=== PATIENT | male | born 1955 | race Caucasian/White ===

== ENCOUNTER 2016-05-25 10:51 | Inpatient (IN) | payer BC ==
--- NOTE | ~2016-05-25 | HP ---
History And Physical [id number] [place]. [address] NAME: ZACARIAS VELAZQUEZ : 57 STATUS : ADM Nestor PAT#: [id number] AGE: 60 ADM/REG DATE : 05/25/16 MR#: [id number] REPORT SERV DATE: 05/26/16 DICTATED BY: ANTONY CARRINGTON DATE: 05/25/16 REPORT STATUS : Draft TRANSCRIBED BY: MODL DATE: 05/25/16 DATE OF ADMISSION: 05/25/2016 CHIEF COMPLAINT: Abdominal pain, bright red blood per rectum. HISTORY OF PRESENT ILLNESS: A 60-year-old man with a past medical history of recent disk herniation. Prior to admission, the patient has been on a prednisone taper and oral pain medications. Reports not to have been eating well for the last week. Started to have abdominal pain several days prior to admission. A day prior to admission, tried to have several bowel movements, but was unable to. The small amount that he was having, produced some bright red blood per rectum. The patient denies chest pain, shortness of breath, palpitations, diaphoresis, hemoptysis, melena, orthopnea, lower extremity swelling, slurred speech, localized weakness, headache, dizziness, or blurry vision. Reports some chills. The patient was evaluated in the ED, found to have evidence of colitis on CT. The patient was started on IV Levaquin and Flagyl. Hospitalist called for further inpatient management. ALLERGIES: PENICILLIN. HOME MEDICATIONS: Include: 1. Artificial tears p.r.n. 2. [place] 5/325 one tab p.o. b.i.d. p.r.n. 3. Lidocaine 5% topical patch daily. 4. Robaxin 750 mg tabs two tabs p.o. t.i.d. p.r.n. 5. Prednisone taper. 6. Multivitamin. 7. Zofran p.o. daily p.r.n. PAST MEDICAL HISTORY: Significant for disk herniations. SOCIAL HISTORY: Denies any alcohol, tobacco, or illicit drug use. FAMILY HISTORY: Positive for hypertension. REVIEW OF SYSTEMS: Twelve-point system reviewed, otherwise negative per HPI. PHYSICAL EXAMINATION: VITAL SIGNS: Temperature 98.3, heart rate 95, blood pressure 172/93, respiratory rate 20, O2 saturation 97 on room air. GENERAL: In mild distress secondary to back pain. HEENT: EOMI, PERRLA, nonicteric sclerae, nonerythematous pharynx. NECK: Supple. No JVD. No lymphadenopathy. RESPIRATORY: Clear to auscultation bilaterally. No wheezes, rhonchi, or crackles. CARDIOVASCULAR: Regular rate and rhythm. No murmurs, rubs, or gallops. ABDOMEN: Bowel sounds positive. Soft, nontender, nondistended. No rebound or guarding. No peritoneal signs. History And Physical [address] [address] NAME: ZACARIAS VELAZQUEZ : 57 STATUS : ADM Nestor PAT#: [id number] AGE: 60 ADM/REG DATE : 05/25/16 MR#: [id number] REPORT SERV DATE: 05/26/16 DICTATED BY: ANTONY CARRINGTON DATE: 05/25/16 REPORT STATUS : Draft TRANSCRIBED BY: MODJayna DATE: 05/25/16 EXTREMITIES: No edema or cyanosis. NEUROLOGICAL: Nonfocal. LABORATORY DATA: WBC of 19, hemoglobin 19, hematocrit 52.2, platelets 305. Sodium 134, potassium 3.9, chloride 101, bicarb 20, BUN 22, creatinine 0.95, glucose 149, lipase 106, lactate 1.6, procalcitonin 0.26. IMAGING: CT of the abdomen and pelvis, impression, edematous descending colon with adjacent mesenteric stranding suggestive of colitis. Infectious versus ischemic. ASSESSMENT: 1. Colitis, infectious versus ischemic. 2. Recent disk herniation. PLAN: The patient will be admitted to telemetry. Consult GI for further recommendations. IV fluids. Levaquin and Flagyl IV. Clear liquid diet. Antiemetics. Appropriate pain control. Repeat lactic acid. Labs in the morning. Further evaluation and management per clinical course. DVT prophylaxis, SCDs. GI prophylaxis, Pepcid. CODE STATUS: Full code. Total time for history and physical, 45 minutes. JUSTIN/ALONZO Yumi Diane MD / [id number] CC: Yumi Diane MD
--- NOTE | ~2016-05-25 | CN ---
Consultation Report [facility] [address] [place]. [address] NAME: ZACARIAS CANNON : 57 STATUS : ADM Nestor PAT#: [id number] AGE: 60 ADM/REG DATE : 05/25/16 MR#: [id number] REPORT SERV DATE: 05/26/16 DICTATED BY: CHUCK HAM DATE: 05/26/16 REPORT STATUS : Draft TRANSCRIBED BY: MODL DATE: 05/26/16 GI CONSULTATION DATE OF CONSULTATION: 05/26/2016 REASON FOR CONSULTATION: Evaluation and management of lower GI bleeding and abdominal pain. HISTORY OF PRESENT ILLNESS: Mr. Cannon is a very pleasant 60-year-old male patient, who is known to Dr. Caroline Domingo on the outpatient basis, who presented to [facility] on 05/25 with a chief complaint of abdominal pain and bright red blood per rectum. He gives a history of a recent herniated disk one week ago, being seen in the outpatient setting, put on a prednisone taper course, as well as oral pain medications. He states that he has had no appetite since being on these medications, as well as fairly significant constipation on Thursday. He states that he felt the urge to have a bowel movement. He had a lot of lower abdominal pain and discomfort. He sat on the toilet for quite some time. He had hot sweating episodes as well as chilling. He began to have bowel movements, however, was passing bright red blood and then eventually was only passing bright red blood. He denies any fever, chills, chest pain, or shortness of breath. He still complains of abdominal pain to me. He came into the emergency room, having a CT scan of the abdomen and pelvis, which showed edematous descending colon with adjacent mesenteric stranding, suggesting colitis, infectious versus ischemic in nature. I have discussed with the patient as well as the family, who is present at the bedside, that we will plan on proceeding with colonoscopy tomorrow. He has had no further bowel movement, but has passed some blood. No stool studies have been sent. I did discuss the risks, benefits, alternatives, and complications with him to include, but not limited to risk of bleeding, perforation, infection, reaction to medications as well as cardiac and pulmonary side effects. They are agreeable to proceed. PAST MEDICAL HISTORY: Positive for colon polyps and disk herniation. SOCIAL HISTORY: He is . He denies alcohol, tobacco, or illicits. FAMILY HISTORY: Noncontributory from a GI standpoint. ALLERGIES: PENICILLIN. HOME MEDICATIONS: Artificial tears, [place], lidocaine, Robaxin, prednisone, multivitamin, and Zofran. REVIEW OF SYSTEMS: A 10-point review of systems has been obtained with pertinent positives being addressed in the history of present illness. PERTINENT LABORATORY DATA: Sodium is 139, potassium 3.8, BUN is 15, creatinine is 0.89. Consultation Report [id number] [facility] [place]. [address] NAME: ZACARIAS CANNON : 57 STATUS : ADM Nestor PAT#: [id number] AGE: 60 ADM/REG DATE : 05/25/16 MR#: [id number] REPORT SERV DATE: 05/26/16 DICTATED BY: CHUCK HAM DATE: 05/26/16 REPORT STATUS : Draft TRANSCRIBED BY: MODL DATE: 05/26/16 White count 16.5, hemoglobin 16.3, hematocrit 45.8, platelet count 268. PHYSICAL EXAMINATION: VITAL SIGNS: Temperature 99.3, pulse 98, respirations 22, and blood pressure 158/92. NEURO: Reveals an alert male, resting in bed with no focal deficits. GENERAL: Cooperative, in no apparent distress. He is awake. He is alert and oriented x3. HEAD, EARS, EYES, NOSE, AND THROAT: Anicteric. Pupils are equal, round, reactive to light and accommodation. Normocephalic and atraumatic. NECK: No JVD. No palpable nodes. LUNGS: Clear anteriorly with normal respiratory effort exhibited. Equal expansion. CARDIOVASCULAR SYSTEM: Regular rate and rhythm. ABDOMEN: Soft and tender to palpation diffusely, bloated by the patient's report. EXTREMITIES: No edema. Normal distal pulses. SKIN: Warm, dry, and intact. ASSESSMENT AND PLAN: 1. Acute descending colon colitis with lower GI bleeding, ischemic versus infectious in nature. 2. Recent disk herniation, pending surgical procedure. 3. Recent constipation secondary to opioid pain medications. PLAN: 1. Clear liquid diet. 2. Bowel prep. 3. Colonoscopy in the morning. 4. Stool studies. 5. Continue Levaquin and Flagyl. 6. Other recommendations to follow endoscopy. LEANNE/MODL LEONELA Beatty / [id number] CC: MD Robi Reed D.O.
--- NOTE | ~2016-05-25 | DS ---
Discharge Summary [facility] [address] [place]. [address] NAME: ZACARIAS VELAZQUEZ : 57 STATUS : DIS IN PAT#: [id number] AGE: 60 ADM/REG DATE : 05/25/16 MR#: [id number] REPORT SERV DATE: 05/28/16 DICTATED BY: JR. OLMOS WILLIAM JOHN DATE: 05/28/16 REPORT STATUS : Draft TRANSCRIBED BY: MODJayna DATE: 05/28/16 ADMISSION DATE: 05/25/2016 DISCHARGE DATE: 05/28/2016 DISCHARGE DIAGNOSES: Include: 1. Colitis. Major differential would include ischemic versus infectious. 2. Recent disk herniation. 3. Leukocytosis, likely secondary to leukemoid from vomiting. OPERATIONS/PROCEDURES AND TREATMENTS: Include: 1. CT of the abdomen and pelvis done 05/25/2016, which showed edematous descending colon with adjacent mesenteric stranding suggesting colitis. Differential considerations would be infectious versus ischemic. 2. Stool for C difficile was negative. Cryptosporidium negative. Giardia antigen negative. 3. Stool leukocytes 0-5. Shiga toxin was not done. Stool culture is currently pending. 4. Attempted colonoscopy. The patient could not tolerate the prep due to nausea and vomiting and it was therefore aborted. DISCHARGE MEDICATIONS: Include: 1. Artificial tears as needed. 2. Robaxin 1500 mg t.i.d. p.r.n. 3. Levaquin 750 mg orally daily for seven days. 4. Flagyl 500 mg orally every eight hours for seven days. 5. Zofran 4 mg as needed, dispensing 15. 6. [place] 5/325 one tablet every four hours as needed, dispensing 10. HOSPITAL COURSE: The patient was a 60-year-old white male with recent disk herniation, treated conservatively with prednisone taper and oral pain medicines, who presented to the emergency room with abdominal pain for several days duration. He had a small amount of bright red blood per rectum. He denied chest pain, shortness of breath, palpitations, diaphoresis, hemoptysis, melena, orthopnea, etc. Workup in the emergency room was significant for temperature of 98.3, heart rate 95, blood pressure 172/93, respiratory rate of 20. Abdominal exam had positive bowel sounds. Soft, nontender, nondistended abdomen. White count was 19, hemoglobin 19, procalcitonin was 0.26. CT of the abdomen and pelvis as detailed above. The patient was admitted to the hospital. He was placed on Levaquin and Flagyl as well as bowel rest, IV fluids, and analgesia. He was seen in consultation by Gastroenterology, who recommended colonoscopy. The patient attempted prep with polyethylene glycol, but was unable to tolerate the prep with nausea and vomiting. He refused to re-prep the next day. Gastroenterology felt it was reasonable to finish the course of antibiotics and do an outpatient endoscopy. The patient's diet was increased. He is tolerating full liquid diet with no pain. He will be discharged today, 05/28/2016; will follow up with Dr. Caroline Domingo in four weeks for followup colonoscopy; will also follow up with primary care physician, Dr. Robi Lr. For discharge exam and laboratory, please see daily Discharge Summary [address] [place]. [address] NAME: ZACARIAS VELAZQUEZ : 57 STATUS : DIS IN PAT#: [id number] AGE: 60 ADM/REG DATE : 05/25/16 MR#: [id number] REPORT SERV DATE: 05/28/16 DICTATED BY: JR. OLMOS WILLIAM JOHN DATE: 05/28/16 REPORT STATUS : Draft TRANSCRIBED BY: ALONZO DATE: 05/28/16 progress note. DISCHARGE DIET: Soft, low-residue diet. DISCHARGE ACTIVITY: As tolerated. This discharge took 35 minutes for patient encounter, coordination of care, and documentation. WJoseF/ALONZO Case Olmos Jr, MD / [id number] CC: Case Olmos Jr, MD Carlton Vollberg, D.O.
[~2016-05-25 10:51] MED LIST: ASAB PO; CEREFOLI1 PO; COQ-10200 MG OR; GENTEAL 15 ML O15 ML OPH; PERCOCET1 TA3 PO; VITD PO
[2016-05-25 11:53] LABS: BASOPHILS 0.1 %; BASOPHILS ABSOLUTE 0.01 10/3/uL (0.0-0.16); EOSINOPHILS 0.1 %; EOSINOPHILS ABSOLUTE 0.01 10/3/uL (0.0-0.53); ER CBC TAT 0 Hrs 14 Mins; IMMATURE GRANULOCYTES 0.5 %; IMMATURE GRANULOCYTES ABSOLUTE 0.09 10/3/uL (0.0-0.11); LYMPHOCYTES 6.4 %; LYMPHOCYTES ABSOLUTE 1.23 10/3/uL (0.67-4.30); MEAN CORPUS HGB CONC 36.4 g/dL (32.0-36.0); MEAN CORPUSCULAR VOLUME 87.9 fL (80-100); MEAN PLATELET VOLUME 9.2 fL (9.2-13.0); MONOCYTES 6.7 %; MONOCYTES ABSOLUTE 1.27 10/3/uL (0.21-1.20); NEUTROPHILS 86.2 %; NEUTROPHILS ABSOLUTE 16.46 10/3/uL (2.02-8.40); PLATELET COUNT 305 10/3/uL (150-400); RBC DISTRIBUTION WIDTH 12.5 % (12.0-16.0); RED CELL COUNT 5.94 10/6/uL (4.7-6.1); WHITE BLOOD CELLS 19.1 10/3/uL (4.5-10.5)
[2016-05-25 11:54] LABS: HEMATOCRIT 52.2 % (40.0-51.0); MANUAL DIFF NO %
[2016-05-25 12:11] LABS: A/G RATIO 0.9 (0.7-1.9); ALBUMIN 3.8 G/DL (3.5-5.0); ALKALINE PHOSPHATASE 86 U/L (45-117); BUN (BLOOD UREA NITROGEN) 22 MG/DL (6-23); CALCIUM, SERUM 9.4 MG/DL (8.5-10.4); CHLORIDE, SERUM 101 MMOL/L (96-112); CO2 (CARBON DIOXIDE) 20 MMOL/L (24-34); CREATININE 0.95 MG/DL (0.70-1.30); GFR AFRICAN AMERICAN 101 ML/MIN (>=60); GFR NON AFRICAN AMERICAN 87 ML/MIN (>=60); GLOBULIN 4.3 G/DL (2.5-4.1); GLUCOSE, SERUM 149 MG/DL (60-99); POTASSIUM, SERUM 3.9 MMOL/L (3.5-5.3); SGOT(AST) 16 U/L (5-40); SGPT(ALT) 33 U/L (5-65); SODIUM, SERUM 134 MMOL/L (135-148); TOTAL BILIRUBIN 0.9 MG/DL (0-1.2); TOTAL PROTEIN 8.1 G/DL (6.0-8.5)
[2016-05-25 13:44] LABS: ASCORBIC ACID (UR NOT ORDER) NEG (NEG); BILIRUBIN, URINE NEGATIVE (NEG); ER URINALYSIS TAT 0 Hrs 21 Mins; KETONE, URINE 80 MG/DL (NEG); LEUKOCYTE ESTERASE(NOT OR NEG (NEG); NITRITE (URINE) NEG (NEG); WBC (NOT ORDERED) (RFLEX) 12 (0-5)
[2016-05-25] MEDS ORDERED: THERGRANM PO (15:15)
[2016-05-25] MEDS ORDERED: [UNRECOGNIZED DRUG - REMARK] (15:15)
[2016-05-25] MEDS ORDERED: METHOC750B PO (15:16)
[2016-05-25] MEDS ORDERED: LIDODERM TOP (15:16)
[2016-05-25] MEDS ORDERED: TEARS PLUS OPH (15:16)
[2016-05-25] MEDS ORDERED: NORCO1 TA1 PO (15:16)
[2016-05-25] MEDS ORDERED: ZOFRAN PO (15:17)
[2016-05-25] MEDS ORDERED: MEDROLPAK4 PO (15:17)
[2016-05-25 15:35] LABS: LACTATE 1.6 MMOL/L (0.3-2.4)
[2016-05-26 05:52] LABS: BASOPHILS 0.1 %; BASOPHILS ABSOLUTE 0.02 10/3/uL (0.0-0.16); EOSINOPHILS 0.4 %; EOSINOPHILS ABSOLUTE 0.06 10/3/uL (0.0-0.53); HEMOGLOBIN 16.3 g/dL (13.6-17.8); IMMATURE GRANULOCYTES 0.2 %; IMMATURE GRANULOCYTES ABSOLUTE 0.03 10/3/uL (0.0-0.11); LYMPHOCYTES 11.7 %; LYMPHOCYTES ABSOLUTE 1.94 10/3/uL (0.67-4.30); MEAN CORPUS HGB CONC 35.6 g/dL (32.0-36.0); MEAN CORPUSCULAR HEMOGLOB 31.4 pg (26.0-34.0); MEAN CORPUSCULAR VOLUME 88.2 fL (80-100); MONOCYTES 9.6 %; MONOCYTES ABSOLUTE 1.59 10/3/uL (0.21-1.20); PLATELET COUNT 268 10/3/uL (150-400); RBC DISTRIBUTION WIDTH 13.1 % (12.0-16.0); RED CELL COUNT 5.19 10/6/uL (4.7-6.1); WHITE BLOOD CELLS 16.5 10/3/uL (4.5-10.5)
[2016-05-26 06:00] LABS: HEMATOCRIT 45.8 % (40.0-51.0); MANUAL DIFF NO %
[2016-05-26 06:17] LABS: BUN (BLOOD UREA NITROGEN) 15 MG/DL (6-23); CALCIUM, SERUM 8.6 MG/DL (8.5-10.4); CHLORIDE, SERUM 104 MMOL/L (96-112); CO2 (CARBON DIOXIDE) 25 MMOL/L (24-34); CREATININE 0.89 MG/DL (0.70-1.30); GFR AFRICAN AMERICAN 108 ML/MIN (>=60); GFR NON AFRICAN AMERICAN 94 ML/MIN (>=60); GLUCOSE, SERUM 122 MG/DL (60-99); POTASSIUM, SERUM 3.8 MMOL/L (3.5-5.3); SODIUM, SERUM 139 MMOL/L (135-148)
[2016-05-27 05:37] LABS: BASOPHILS 0 %; BASOPHILS ABSOLUTE 0.01 10/3/uL (0.0-0.16); EOSINOPHILS 0 %; EOSINOPHILS ABSOLUTE 0.01 10/3/uL (0.0-0.53); HEMATOCRIT 45.6 % (40.0-51.0); HEMOGLOBIN 16.2 g/dL (13.6-17.8); IMMATURE GRANULOCYTES 0.3 %; IMMATURE GRANULOCYTES ABSOLUTE 0.08 10/3/uL (0.0-0.11); LYMPHOCYTES 8.4 %; LYMPHOCYTES ABSOLUTE 1.96 10/3/uL (0.67-4.30); MEAN CORPUS HGB CONC 35.5 g/dL (32.0-36.0); MEAN CORPUSCULAR HEMOGLOB 31.6 pg (26.0-34.0); MEAN CORPUSCULAR VOLUME 89.1 fL (80-100); MEAN PLATELET VOLUME 9.4 fL (9.2-13.0); MONOCYTES 7.5 %; MONOCYTES ABSOLUTE 1.75 10/3/uL (0.21-1.20); NEUTROPHILS 83.8 %; NEUTROPHILS ABSOLUTE 19.42 10/3/uL (2.02-8.40); PLATELET COUNT 292 10/3/uL (150-400); RBC DISTRIBUTION WIDTH 12.8 % (12.0-16.0); RED CELL COUNT 5.12 10/6/uL (4.7-6.1)
[2016-05-27 05:43] LABS: MANUAL DIFF NO %; WHITE BLOOD CELLS 23.2 10/3/uL (4.5-10.5)
[2016-05-27 05:44] LABS: INTERNATIONAL NORMAL RATI 1.1 UNITS (-); PROTIME (NOT ORD) 14.1 SEC (12.0-14.5)
[2016-05-27 06:00] LABS: BUN (BLOOD UREA NITROGEN) 12 MG/DL (6-23); CALCIUM, SERUM 8.9 MG/DL (8.5-10.4); CHLORIDE, SERUM 101 MMOL/L (96-112); CO2 (CARBON DIOXIDE) 25 MMOL/L (24-34); CREATININE 0.91 MG/DL (0.70-1.30); GFR AFRICAN AMERICAN 107 ML/MIN (>=60); GFR NON AFRICAN AMERICAN 92 ML/MIN (>=60); GLUCOSE, SERUM 121 MG/DL (60-99); POTASSIUM, SERUM 3.8 MMOL/L (3.5-5.3); SODIUM, SERUM 139 MMOL/L (135-148)
[2016-05-28 03:57] LABS: BASOPHILS 0.1 %; BASOPHILS ABSOLUTE 0.02 10/3/uL (0.0-0.16); EOSINOPHILS 0.4 %; EOSINOPHILS ABSOLUTE 0.07 10/3/uL (0.0-0.53); HEMATOCRIT 47.8 % (40.0-51.0); HEMOGLOBIN 17.2 g/dL (13.6-17.8); IMMATURE GRANULOCYTES 0.3 %; IMMATURE GRANULOCYTES ABSOLUTE 0.05 10/3/uL (0.0-0.11); LYMPHOCYTES 15.8 %; LYMPHOCYTES ABSOLUTE 2.65 10/3/uL (0.67-4.30); MEAN CORPUSCULAR HEMOGLOB 32.3 pg (26.0-34.0); MEAN CORPUSCULAR VOLUME 89.7 fL (80-100); MEAN PLATELET VOLUME 9.1 fL (9.2-13.0); MONOCYTES 10.2 %; MONOCYTES ABSOLUTE 1.71 10/3/uL (0.21-1.20); NEUTROPHILS 73.2 %; NEUTROPHILS ABSOLUTE 12.26 10/3/uL (2.02-8.40); PLATELET COUNT 272 10/3/uL (150-400); RBC DISTRIBUTION WIDTH 12.9 % (12.0-16.0); RED CELL COUNT 5.33 10/6/uL (4.7-6.1); WHITE BLOOD CELLS 16.8 10/3/uL (4.5-10.5)
[2016-05-28 03:59] LABS: MANUAL DIFF NO %
[2016-05-28 04:12] LABS: BUN (BLOOD UREA NITROGEN) 14 MG/DL (6-23); CALCIUM, SERUM 8.7 MG/DL (8.5-10.4); CHLORIDE, SERUM 103 MMOL/L (96-112); CO2 (CARBON DIOXIDE) 29 MMOL/L (24-34); CREATININE 0.92 MG/DL (0.70-1.30); GFR AFRICAN AMERICAN 105 ML/MIN (>=60); GFR NON AFRICAN AMERICAN 91 ML/MIN (>=60); GLUCOSE, SERUM 104 MG/DL (60-99); POTASSIUM, SERUM 3.8 MMOL/L (3.5-5.3); SODIUM, SERUM 141 MMOL/L (135-148)
[2016-05-28] MEDS ORDERED: LEVAQUIN750 MG PO (09:28)
[2016-05-28] MEDS ORDERED: FLAG500TAB PO (09:29)
[2016-05-28] MEDS ORDERED: ZOFRAN4 PO (09:30)
[2016-05-28] MEDS ORDERED: NORCO1 TA1 PO (09:31)
== END 2016-05-28 11:46 | disposition home or self-care (01) | DRG 394 ==
LOC: ER 10:51 → CDU1 15:14
PROVIDERS: Internal Medicine; Nurse Practitioner Family; Physician Assistant
DX: K55.9 Vascular disorder of intestine, unspecified (principal); A09 Infectious gastroenteritis and colitis, unspecified; Z53.09 Procedure and treatment not carried out because of other contraindication; D72.829 Elevated white blood cell count, unspecified; K59.03 Drug induced constipation; T40.2X5A Adverse effect of other opioids, initial encounter
CPT/HCPCS: 74176; 80048; 80053; 81001; 83605; 83690; 83735; 84145; 85025; 85610; 87045; 87046; 87046-59; 87328; 87329; 87493; 87493-59; 87899; 87899-59; 89055; 93005; 96374; 99285; A9270-GY; J0360; J1170; J1956; J2405; J2550